=== PATIENT | female | born 1990 | race Caucasian/White ===

== ENCOUNTER 2018-12-28 15:33 | Emergency (ER) | payer SELFPAY ==
--- NOTE | 2018-12-28 16:14 | ER ---
Nurse's Notes [facility] Name: Patricia Barrera Age: 28 yrs Sex: Female : 1990 Arrival Date: 12/28/2018 Time: 15:35 Bed 8 Private MD: Diagnosis: Laceration without foreign body of right hand Presentation: 12/28 15:37 Presenting complaint: Patient states: laceration to the left hand after washing dishes sv and had a broken glass in the water. Transition of care: patient was not received from another setting of care. Complicating Factors: Glass or an other foreign body is present in the wound. Onset of symptoms was December 28, 2018 at 14:30. Care prior to arrival: None. 15:37 Method Of Arrival: Ambulatory sv 15:37 Acuity: BROOKE 3 sv 16:00 Risk Assessment: Do you want to hurt yourself or someone else? Patient reports no ph desire to harm self or others. Initial Sepsis Screen: Does the patient meet any 2 criteria? No. Patient's initial sepsis screen is negative. Does the patient have a suspected source of infection? No. Patient's initial sepsis screen is negative. Triage Assessment: 15:40 General: Appears in no apparent distress. uncomfortable, well developed, Behavior is sv calm, cooperative, appropriate for age. Pain: Complains of pain in left hand Pain currently is 3 out of 10 on a pain scale. Neuro: Level of Consciousness is awake, alert, obeys commands, Oriented to person, place, time, situation, Gait is steady. Respiratory: Respiratory effort is even, unlabored, Respiratory pattern is regular, symmetrical. Injury Description: Laceration sustained to left hand is contaminated, not bleeding, was sustained 1-2 hours ago. is bleeding no active bleeding noted. Historical: - Allergies: 15:38 PENICILLINS; sv - PMHx: 15:38 None; sv - Immunization history:: Last tetanus immunization: < 5 years ago. - Family history:: not pertinent. - Social history:: Smoking status: Patient/guardian denies using tobacco. - Ebola Screening: : No symptoms or risks identified at this time. Screenin:30 Abuse screen: Denies threats or abuse. Denies injuries from another. Nutritional hb screening: No deficits noted. Tuberculosis screening: No symptoms or risk factors identified. Fall Risk None identified. Assessment: 16:00 General: Appears in no apparent distress. Behavior is calm, cooperative. Pain: Pain hb currently is 3 out of 10 on a pain scale. Neuro: Level of Consciousness is awake, alert, obeys commands, Oriented to person, place, time, situation. Cardiovascular: Capillary refill < 3 seconds Patient's skin is warm and dry. Respiratory: Airway is patent Respiratory effort is even, unlabored, Respiratory pattern is regular, symmetrical. GI: No signs and/or symptoms were reported involving the gastrointestinal system. : No signs and/or symptoms were reported regarding the genitourinary system. EENT: No signs and/or symptoms were reported regarding the EENT system. Derm: Skin is pink, warm \T\ dry. Musculoskeletal: Range of motion: intact in all extremities. Injury Description: Laceration sustained to dorsal aspect of proximal phalanx of right index finger is jagged, 2.6 to 7.5 cm long, bleeding moderately, was sustained 30-60 minutes ago. is bleeding no active bleeding noted. 17:00 Reassessment: Patient appears in no apparent distress at this time. Patient and/or hb family updated on plan of care and expected duration. Pain level reassessed. Patient is alert, oriented x 3, equal unlabored respirations, skin warm/dry/pink. Vital Signs: 15:38 BP 116 / 82; Pulse 93; Resp 16; Temp 97.6; Pulse Ox 100% ; Weight 64.41 kg; Height 5 sv ft. 1 in. (154.94 cm); Pain 3/10; 15:38 Body Mass Index 26.83 (64.41 kg, 154.94 cm) sv ED Course: 15:35 Patient arrived in ED. as 15:37 Triage completed. sv 15:38 Arm band placed on. sv 15:39 Mayur Ayers MD is Attending Physician. darby 15:56 Sis Owens, PITER is Primary Nurse. ph 16:05 Patient has correct armband on for positive identification. Bed in low position. Call hb light in reach. Side rails up X 1. 16:23 Hand Right 2 View XRAY In Process Unspecified. EDMS 17:38 No provider procedures requiring assistance completed. Patient did not have IV access hb during this emergency room visit. Administered Medications: 17:00 Drug: Lidocaine-Epinephrine -1%: (1:100,000) 5 ml Volume: 20 ml; Route: Infiltration; ph 17:15 Follow up: Response: No adverse reaction ph 19:58 Not Given (Other Intervention Used): KeFLEX 500 mg PO once ph Outcome: 16:12 Discharge ordered by . darby 17:36 Discharged to home ambulatory, with significant other. hb 17:36 Condition: stable 17:36 Discharge instructions given to patient, significant other, Instructed on discharge instructions, follow up and referral plans. medication usage, wound care, Demonstrated understanding of instructions, follow-up care, medications, wound care, Prescriptions given X 2. 17:39 Patient left the ED. hb Signatures: Dispatcher [employer] EDHien Cabello RN RN sv Anderson, Corey, MD MD cha Martinez, Amelia as Hall, Patricia, RN RN Estee Alva RN RN hb
--- NOTE | 2018-12-28 16:14 | EDPHYS ---
Physician Documentation [facility] Name: Patricia Barrera Age: 28 yrs Sex: Female : 1990 Arrival Date: 12/28/2018 Time: 15:35 Bed 8 Private MD: ED Physician Mayur Ayers HPI: 12/28 16:07 This 28 yrs old Female presents to ER via Ambulatory with complaints of darby Laceration To Hand. 16:07 The patient has a laceration related to: occurred at home. The laceration(s) is(are) darby located on the right hand. Onset: The symptoms/episode began/occurred just prior to arrival. Associated signs and symptoms: The patient has no apparent associated signs or symptoms. The patient has not experienced similar symptoms in the past. Historical: - Allergies: 15:38 PENICILLINS; sv - PMHx: 15:38 None; sv - Immunization history:: Last tetanus immunization: < 5 years ago. - Family history:: not pertinent. - Social history:: Smoking status: Patient/guardian denies using tobacco. - Ebola Screening: : No symptoms or risks identified at this time. ROS: 16:07 Constitutional: Negative for fever, chills, and weight loss, Eyes: Negative for injury, darby pain, redness, and discharge, ENT: Negative for injury, pain, and discharge, Neck: Negative for injury, pain, and swelling, Cardiovascular: Negative for chest pain, palpitations, and edema, Respiratory: Negative for shortness of breath, cough, wheezing, and pleuritic chest pain, Abdomen/GI: Negative for abdominal pain, nausea, vomiting, diarrhea, and constipation, Back: Negative for injury and pain, : Negative for injury, bleeding, discharge, and swelling, Skin: Negative for injury, rash, and discoloration, Neuro: Negative for headache, weakness, numbness, tingling, and seizure, Psych: Negative for depression, anxiety, suicide ideation, homicidal ideation, and hallucinations, Allergy/Immunology: Negative for hives, rash, and allergies, Endocrine: Negative for neck swelling, polydipsia, polyuria, polyphagia, and marked weight changes, Hematologic/Lymphatic: Negative for swollen nodes, abnormal bleeding, and unusual bruising. 16:07 MS/extremity: Positive for decreased range of motion, pain, tenderness, of the right hand. Exam: 16:07 Constitutional: This is a well developed, well nourished patient who is awake, alert, darby and in no acute distress. Head/Face: Normocephalic, atraumatic. Eyes: Pupils equal round and reactive to light, extra-ocular motions intact. Lids and lashes normal. Conjunctiva and sclera are non-icteric and not injected. Cornea within normal limits. Periorbital areas with no swelling, redness, or edema. ENT: Nares patent. No nasal discharge, no septal abnormalities noted. Tympanic membranes are normal and external auditory canals are clear. Oropharynx with no redness, swelling, or masses, exudates, or evidence of obstruction, uvula midline. Mucous membranes moist. Neck: Trachea midline, no thyromegaly or masses palpated, and no cervical lymphadenopathy. Supple, full range of motion without nuchal rigidity, or vertebral point tenderness. No Meningismus. Chest/axilla: Normal chest wall appearance and motion. Nontender with no deformity. No lesions are appreciated. Cardiovascular: Regular rate and rhythm with a normal S1 and S2. No gallops, murmurs, or rubs. Normal PMI, no JVD. No pulse deficits. Respiratory: Lungs have equal breath sounds bilaterally, clear to auscultation and percussion. No rales, rhonchi or wheezes noted. No increased work of breathing, no retractions or nasal flaring. Abdomen/GI: Soft, non-tender, with normal bowel sounds. No distension or tympany. No guarding or rebound. No evidence of tenderness throughout. Back: No spinal tenderness. No costovertebral tenderness. Full range of motion. Female : Normal external genitalia. Skin: Warm, dry with normal turgor. Normal color with no rashes, no lesions, and no evidence of cellulitis. Neuro: Awake and alert, GCS 15, oriented to person, place, time, and situation. Cranial nerves II-XII grossly intact. Motor strength 5/5 in all extremities. Sensory grossly intact. Cerebellar exam normal. Normal gait. Psych: Awake, alert, with orientation to person, place and time. Behavior, mood, and affect are within normal limits. 16:07 Musculoskeletal/extremity: Extremities: noted in the dorsal aspect of proximal phalanx of right index finger: laceration. Vital Signs: 15:38 BP 116 / 82; Pulse 93; Resp 16; Temp 97.6; Pulse Ox 100% ; Weight 64.41 kg; Height 5 sv ft. 1 in. (154.94 cm); Pain 3/10; 15:38 Body Mass Index 26.83 (64.41 kg, 154.94 cm) sv Laceration: 16:07 Wound Repair of 2.5cm ( 1.0in ) subcutaneous laceration to right hand and dorsal aspect darby of proximal phalanx of right index finger. Distal neuro/vascular/tendon intact. Anesthesia: Local anesthetic administered with 5 mls of 1% lidocaine w/ Epi. Wound prep: Simple cleansing by or. Skin closed with 5 5-0 Prolene using vertical mattress sutures and sterile technique. Dressed with Neosporin. Patient tolerated well. MDM: 15:39 Patient medically screened. [facility] 16:07 Data reviewed: vital signs, nurses notes, radiologic studies, plain films. [facility] 12/28 16:07 Order name: Hand Right 2 View XRAY [facility] 12/28 16:07 Order name: Prolene, Sutures; Complete Time: 19:59 [facility] 12/28 16:07 Order name: Dressing - Wound; Complete Time: 19:59 [facility] 12/28 16:07 Order name: Gloves, Sterile; Complete Time: 19:59 [facility] 12/28 16:07 Order name: Setup Suture Tray; Complete Time: 19:59 [facility] 12/28 16:07 Order name: Wound Care; Complete Time: 19:59 [facility] Administered Medications: 17:00 Drug: Lidocaine-Epinephrine -1%: (1:100,000) 5 ml Volume: 20 ml; Route: Infiltration; ph 17:15 Follow up: Response: No adverse reaction ph 19:58 Not Given (Other Intervention Used): KeFLEX 500 mg PO once ph Disposition: 12/28/18 16:12 Discharged to Home. Impression: Laceration without foreign body of right hand. - Condition is Stable. - Discharge Instructions: Laceration Care, Adult, Laceration Care, Adult, [id number]. - Prescriptions for Keflex 500 mg Oral Capsule - take 1 capsule by ORAL route every 6 hours for 7 days; 28 capsule. Tylenol- Codeine #3 300-30 mg Oral Tablet - take 2 tablets by ORAL route every 6 hours As needed; 24 tablet. - Medication Reconciliation Form, Thank You Letter, Antibiotic Education, Prescription Opioid Use form. - Follow up: Private Physician; When: 7 - 10 days; Reason: Recheck today's complaints, Continuance of care, Re-evaluation by your physician. - Problem is new. - Symptoms have improved. Signatures: Dispatcher [employer] Hien Tapia RN RN Mayur Talley MD MD cha Hall, Patricia, RN RN Estee Self RN RN hb Corrections: (The following items were deleted from the chart) 17:39 16:12 12/28/2018 16:12 Discharged to Home. Impression: Laceration without foreign body hb of right hand. Condition is Stable. Forms are Medication Reconciliation Form, Thank You Letter, Antibiotic Education, Prescription Opioid Use. Follow up: Private Physician; When: 7 - 10 days; Reason: Recheck today's complaints, Continuance of care, Re-evaluation by your physician. Problem is new. Symptoms have improved. darby
[2018-12-28] MEDS ORDERED: LIDOCAINE 1% W/EPI 1:100,000 MDV 50 ML VIAL ONE (16:31)
--- NOTE | 2018-12-28 16:32 | RAD REPORT ---
EXAM DESCRIPTION: RAD - Hand Right 2 View - 12/28/2018 4:25 pm CLINICAL HISTORY: Right hand pain status post injury FINDINGS: A limited two view series obtained. No fracture or dislocation is seen.
== END 2018-12-28 17:39 | disposition home or self-care (01) ==
LOC: ER 15:33
PROC: 0JQJ0ZZ Repair Right Hand Subcutaneous Tissue and Fascia, Open Approach (ICD-10-PCS; principal; 2018-12-28)
DX: S61.411A Laceration without foreign body of right hand, initial encounter (principal); Y92.009 Unspecified place in unspecified non-institutional (private) residence as the place of occurrence of the external cause; Z88.0 Allergy status to penicillin
CPT/HCPCS: 99283